=== PATIENT | female | born 1970 | race Caucasian/White ===

== ENCOUNTER 2018-11-19 13:10 | Emergency (ER) | payer SELFPAY ==
[~2018-11-19] VITALS: Ht 160 cm; Wt 93.9 kg
--- NOTE | 2018-11-19 13:22 | NUR ---
C/O L SIDED BODY PAIN WORST TO L SIDE. PATIENT A/OX4, BREATHING EVEN AND UNLABORED, NO DISTRESS NOTED, ATTACHED TO THE MONITOR, WAITING FOR MD HODGSON.
[2018-11-19] MEDS ORDERED: LORAZEPAM 0.5 MG TABLET ONE (13:41)
[2018-11-19] MEDS ORDERED: IBUPROFEN 600 MG TABLET PO ONE ×2 (13:41→14:00)
[2018-11-19] MEDS ORDERED: LORAZEPAM 0.5 MG TABLET PO ONE (14:00)
--- NOTE | 2018-11-19 15:30 | NUR ---
Patient discharged to home in stable condition. Written and verbal after care instructions given. Patient verbalizes understanding of instruction.
[2018-11-19 15:31] VITALS: BP 127/65
== END 2018-11-19 15:33 | disposition home or self-care (01) ==
LOC: ER 13:10
DX: M19.012 Primary osteoarthritis, left shoulder (principal); I10 Essential (primary) hypertension; E11.9 Type 2 diabetes mellitus without complications; W07.XXXA Fall from chair, initial encounter; Y93.89 Activity, other specified; Y92.811 Bus as the place of occurrence of the external cause; Y99.8 Other external cause status
CPT/HCPCS: 73030-TC